=== PATIENT | male | born 1995 | race Caucasian/White ===

== ENCOUNTER 2020-07-14 23:48 | Emergency (ER) | payer MEDICAID ==
[~2020-07-14] VITALS: Ht 170.2 cm; Wt 55.8 kg
[2020-07-15 00:01] VITALS: Ht 170.2 cm; Wt 55.8 kg
[2020-07-15 01:15] VITALS: BP 126/78
== END 2020-07-15 01:15 | disposition home or self-care (01) ==
LOC: ED 23:48
DX: K64.9 Unspecified hemorrhoids (principal)
CPT/HCPCS: J1885